=== PATIENT | male | born 1960 | race Caucasian/White ===

== ENCOUNTER 2017-02-28 14:50 | Inpatient (IN) | payer MEDICARE, MEDICAID ==
[~2017-02-28] VITALS: Ht 172.7 cm; Wt 95.4 kg
[2017-02-28 15:23] LABS: BASOPHIL 0.2 % (0-2); EOSINOPHIL 0 % (0-5); HCT 46.5 % (42.0-52.0); LYMPHOCYTE 3.7 % (15-48); MCH 32.5 pg (25.0-31.0); MCHC 32.3 g/dL (32.0-36.0); MCV 100.9 fL (78.0-100.0); MONOCYTE 10.2 % (0-12); MPV 9.9 fL (6.0-9.5); NEUTROPHIL 85.9 % (41-80); PLT 127 K/uL (150-400); RBC 4.61 M/uL (4.70-6.00); RDW 13.9 % (11.5-14.0); WBC 12.3 K/uL (4.0-10.5)
[2017-02-28 15:27] LABS: INR 1.14 (0.9-1.2); PROTHROMBIN TIME 14.2 SECONDS (11.7-14.0); PTT 28.8 SECONDS (23.2-31.4)
[2017-02-28 15:41] LABS: ALBUMIN 3.4 g/dL (3.5-5.0); BILIRUBIN - TOTAL 0.3 mg/dL (0.1-1.0); CREATININE 1.6 mg/dL (0.7-1.2); MAGNESIUM 2.11 mg/dL (1.40-2.10); POTASSIUM 4.4 mmol/L (3.5-5.1); TOTAL PROTEIN 7.4 g/dL (6.4-8.3)
[2017-02-28 15:42] LABS: LACTIC ACID 2.7 mmol/L (0.5-2.2)
[2017-02-28 16:04] LABS: CKMB 1.82 ng/mL (0.97-4.94); MYOGLOBIN 62 ng/mL (26-65); TROPONIN T < 0.010 ng/mL
[2017-02-28 16:15] LABS: PRO-BNP 1047 pg/mL (0-125)
[2017-02-28 21:52] LABS: BILIRUBIN NEGATIVE (NEGATIVE); BLOOD TRACE-INTACT Ery/uL (NEGATIVE); CLARITY CLEAR (CLEAR); COLOR YELLOW (YELLOW); GLUCOSE (U) NORMAL (NORMAL); KETONE (U) NEGATIVE (NEGATIVE); LEUKOCYTES NEGATIVE Leu/uL (NEGATIVE); NITRITE NEGATIVE (NEGATIVE); PROTEIN 1+ mg/dL (NEGATIVE); SPECIFIC GRAVITY >=1.030 (1.001-1.030); UROBILINOGEN 0.2 mg/dL (0.2-1.0); pH 5.5 (5.0-9.0)
[2017-02-28 21:54] LABS: BACTERIA 1+; MUCOUS MODERATE; URINARY RBC RARE
[2017-02-28 22:08] LABS: AMPHETAMINES NEGATIVE (NEGATIVE); BARBITURATES NEGATIVE (NEGATIVE); BENZODIAZEPINES POSITIVE (NEGATIVE); COCAINE NEGATIVE (NEGATIVE); MARIJUANA (THC) NEGATIVE (NEGATIVE); METHADONE POSITIVE (NEGATIVE); TRICYCLIC ANTIDEPRESSANT NEGATIVE (NEGATIVE)
[2017-03-01 08:47] LABS: BASOPHIL 0.1 % (0-2); EOSINOPHIL 0 % (0-5); HCT 41.9 % (42.0-52.0); HGB 13.7 g/dl (13.2-18.0); LYMPHOCYTE 5.1 % (15-48); MCH 33.6 pg (25.0-31.0); MCHC 32.7 g/dL (32.0-36.0); MCV 102.7 fL (78.0-100.0); MONOCYTE 3.8 % (0-12); MPV 9.1 fL (6.0-9.5); PLT 117 K/uL (150-400); RBC 4.08 M/uL (4.70-6.00); RDW 13.8 % (11.5-14.0); WBC 7.8 K/uL (4.0-10.5)
[2017-03-01 09:39] LABS: ALBUMIN 3.1 g/dL (3.5-5.0); BILIRUBIN - TOTAL 0.2 mg/dL (0.1-1.0); GLOBULIN (CALCULATION) 3.6 g/dL (2.2-4.2); POTASSIUM 3.8 mmol/L (3.5-5.1); TOTAL PROTEIN 6.7 g/dL (6.4-8.3)
[2017-03-02 05:03] LABS: MCH 32.7 pg (25.0-31.0); MCHC 32.5 g/dL (32.0-36.0); MCV 100.5 fL (78.0-100.0); MPV 9.9 fL (6.0-9.5); RBC 3.98 M/uL (4.70-6.00); RDW 13.7 % (11.5-14.0); WBC 10.1 K/uL (4.0-10.5)
[2017-03-02 05:43] LABS: POTASSIUM 3.9 mmol/L (3.5-5.1)
[2017-03-03 04:06] LABS: HCT 40.5 % (42.0-52.0); HGB 13.9 g/dl (13.2-18.0); MCH 33.7 pg (25.0-31.0); MCHC 34.3 g/dL (32.0-36.0); MCV 98.1 fL (78.0-100.0); MPV 9.7 fL (6.0-9.5); RBC 4.13 M/uL (4.70-6.00); RDW 13.8 % (11.5-14.0); WBC 10.3 K/uL (4.0-10.5)
[2017-03-03 04:28] LABS: CREATININE 0.9 mg/dL (0.7-1.2); POTASSIUM 4.1 mmol/L (3.5-5.1)
[2017-03-04 04:03] LABS: HCT 41.5 % (42.0-52.0); HGB 13.6 g/dl (13.2-18.0)
[2017-03-04 04:04] LABS: MCH 32.4 pg (25.0-31.0); MCHC 32.8 g/dL (32.0-36.0); MCV 98.8 fL (78.0-100.0); PLT 162 K/uL (150-400)
[2017-03-04 04:13] LABS: POTASSIUM 4.3 mmol/L (3.5-5.1)
[2017-03-04] MEDS ORDERED: DIAZEPAM 5MG TAB5 MG PO (10:15)
[2017-03-04] MEDS ORDERED: NEURONTIN400 MG PO (10:20)
[2017-03-04] MEDS ORDERED: CELEXA20 M1 PO (10:21)
[2017-03-04] MEDS ORDERED: OXYCODONE HCL15 MG PO (10:21)
[2017-03-04] MEDS ORDERED: FLEXERIL10 MG PO (10:22)
[2017-03-04] MEDS ORDERED: IBUPROFEN800 MG PO (10:22)
[2017-03-04] MEDS ORDERED: SPIRIVA18 MCG INH (10:23)
[2017-03-04] MEDS ORDERED: VENTOLIN HFA IN18 GM INH (10:24)
[2017-03-04] MEDS ORDERED: DULERA 200 MCG8.8 GM INH (10:25)
[2017-03-04] MEDS ORDERED: LEVAQUIN750 MG PO (10:26)
[2017-03-04] MEDS ORDERED: MEDROL4 M1 PO (10:27)
== END 2017-03-04 11:15 | disposition home or self-care (01) | DRG 871 ==
LOC: FER 14:50 → FTCU 17:11 → FICU 17:11 → FTCU 03-02 09:00
PROVIDERS: Emergency Medicine; Internal Medicine; Nurse Practitioner; ADMIT Internal Medicine
DX: A41.9 Sepsis, unspecified organism (principal); J18.9 Pneumonia, unspecified organism; J96.21 Acute and chronic respiratory failure with hypoxia; G93.41 Metabolic encephalopathy; E87.2 Acidosis; N17.9 Acute kidney failure, unspecified; F11.20 Opioid dependence, uncomplicated; F17.210 Nicotine dependence, cigarettes, uncomplicated; R65.20 Severe sepsis without septic shock; J44.9 Chronic obstructive pulmonary disease, unspecified; F41.8 Other specified anxiety disorders; T50.991A Poisoning by other drugs, medicaments and biological substances, accidental (unintentional), initial encounter
CPT/HCPCS: 36415; 36600; 71010; 71250; 78580; 80048; 80053; 80202; 80305; 81001; 82550; 82553; 82803; 82962; 83605; 83735; 83874; 83880; 84484; 85025; 85379; 85610; 85730; 87040; 87070; 87077; 87186; 87205; 93005; 94640; 94660; 94664; A9540; J1956; J2310; J2543; J2930; J3370

== ENCOUNTER 2021-08-18 17:45 | Emergency (ER) | payer MEDICARE ==
[~2021-08-18 17:45] MED LIST: CELEXA20 M1 PO; DIAZEPAM 5MG TAB5 MG PO; DULERA 200 MCG8.8 GM INH; FLEXERIL10 MG PO; IBUPROFEN800 MG PO; LEVAQUIN750 MG PO; MEDROL4 M1 PO; NEURONTIN400 MG PO; OXYCODONE HCL15 MG PO; SPIRIVA18 MCG INH; VENTOLIN HFA IN18 GM INH
[2021-08-18 18:29] LABS: BASOPHIL 1.1 % (0-2); EOSINOPHIL 0.1 % (0-5); HCT 47.7 % (42.0-52.0); HGB 14.6 g/dl (13.2-18.0); LYMPHOCYTE 14.5 % (15-48); MCH 32.2 pg (25.0-31.0); MCHC 30.6 g/dL (32.0-36.0); MCV 105.1 fL (78.0-100.0); MONOCYTE 6.8 % (0-12); MPV 9.2 fL (6.0-9.5); NEUTROPHIL 76.6 % (41-80); NRBC 0; PLT 219 K/uL (150-400); RBC 4.54 M/uL (4.70-6.00); RDW 13.9 % (11.5-14.0); WBC 11.7 K/uL (4.0-10.5)
[2021-08-18 18:31] LABS: INR 1.34 (0.9-1.2); PROTHROMBIN TIME 15.9 SECONDS (11.8-13.4)
[2021-08-18 18:32] LABS: PTT 32.3 SECONDS (24.4-34.7)
[2021-08-18 18:45] LABS: ALBUMIN 2.9 g/dL (3.4-5.0); ALKALINE PHOSHATASE 77 U/L (46-116); ALT 35 U/L (16-63); AST 39 U/L (15-37); BILIRUBIN - TOTAL 0.5 mg/dL (0.2-1.0); BUN 12 mg/dL (7-18); CHLORIDE 98 mmol/L (98-107); CO2 (BICARBONATE) 36 mmol/L (21-32); CREATININE 1.99 mg/dL (0.67-1.17); GLOBULIN (CALCULATION) 4.9 g/dL; GLUCOSE 147 mg/dL (74-106); POTASSIUM 4.5 mmol/L (3.5-5.1); TOTAL PROTEIN 7.8 g/dL (6.4-8.2)
[2021-08-18] MEDS ORDERED: NARCAN4 MG (19:50)
== END 2021-08-18 20:07 | disposition home or self-care (01) ==
LOC: FER 17:45
PROVIDERS: Emergency Medicine
DX: T50.901A Poisoning by unspecified drugs, medicaments and biological substances, accidental (unintentional), initial encounter (principal); E11.22 Type 2 diabetes mellitus with diabetic chronic kidney disease; I13.0 Hypertensive heart and chronic kidney disease with heart failure and stage 1 through stage 4 chronic kidney disease, or unspecified chronic kidney disease; N18.9 Chronic kidney disease, unspecified; I50.9 Heart failure, unspecified; F17.210 Nicotine dependence, cigarettes, uncomplicated; Z99.2 Dependence on renal dialysis
CPT/HCPCS: 36415; 80053; 85025; 85610; 85730; G0480; J2310